=== PATIENT | female | born 1995 | race African-American/Black ===

== ENCOUNTER 2018-12-08 15:32 | Emergency (ER) | payer MEDICAID ==
[~2018-12-08] VITALS: Ht 152.4 cm; Wt 53.0 kg
[2018-12-08 20:00] VITALS: BP 109/68
== END 2018-12-08 21:40 | disposition left against medical advice (07) ==
LOC: ER 15:32
DX: R10.30 Lower abdominal pain, unspecified (principal); Z53.21 Procedure and treatment not carried out due to patient leaving prior to being seen by health care provider